=== PATIENT | male | born 1990 | race Caucasian/White ===

== ENCOUNTER 2017-03-21 00:07 | Emergency (ER) | payer MEDICAID ==
[2017-03-21] MEDS ORDERED: Ketorolac 60 MG/2 ML SDV IM ONE (00:40)
--- NOTE | 2017-03-21 00:46 | EDM.PDOC ---
ED HPI GENERAL MEDICAL PROBLEM - General Chief Complaint: General Stated Complaint: TOOTHE ACHE Time Seen by Provider: 03/21/17 00:31 Source of Information: Reports: Patient, RN History Limitations: Reports: No Limitations - History of Present Illness INITIAL COMMENTS - FREE TEXT/NARRATIVE: 27 yr male presents with tooth pain. States he is here fishing and staying at [facility]. States he has had these wisdom teeth for quite some time and he has taken Ibuprofen or Tylenol for the pain and it has been improved. States no signs of abscess and no drainage. States he hasn't tried ice to this area. States he did try some alcohol earlier and this didn't help. States he was advised to have the wisdom teeth removed and hasn't done this yet. States he does have dental insurance and will need to schedule this. 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: Acetaminophen, Other Medication(s) Other Treatments RO[employer] MACHINE [employer]NER: Ibuprophen Left Lower Tooth/Teeth Pain Score (Numeric/FACES): 8 - Related Data Allergies Allergy/AdvReac Type Severity Reaction Status Date / Time No Known Allergies Allergy Verified 03/21/17 00:21 Home Meds: Home Meds NK [No Known Home Meds] 03/21/17 [History] Past Medical History Musculoskeletal History: Reports: Fracture - Past Surgical History GI Surgical History: Reports: Appendectomy Musculoskeletal Surgical History: Reports: Other (See Below) Other Musculoskeletal Surgeries/Procedures:: Boxer fx to R hand x2, R wrist Fx. Hx L floating rib fx ED ROS GENERAL - Review of Systems Review Of Systems: See Below Constitutional: Reports: No Symptoms HEENT: Reports: Dental Pain Respiratory: Reports: No Symptoms Cardiovascular: Reports: No Symptoms GI/Abdominal: Reports: No Symptoms ED EXAM, GENERAL - Physical Exam Exam: See Below Exam Limited By: No Limitations General Appearance: Alert, No Apparent Distress Ears: Hearing Grossly Normal Nose: Normal Inspection Throat/Mouth: Normal Lips, No Airway Compromise, Other (bottom left gum has dark tooth noted to wisdom tooth area.) Head: Atraumatic, Normocephalic Neck: Supple, Non-Tender, Full Range of Motion Respiratory/Chest: No Respiratory Distress, Lungs Clear, Normal Breath Sounds Cardiovascular: Regular Rate, Rhythm Neurological: Alert, Oriented, Normal Cognition, Normal Gait Psychiatric: Normal Affect, Normal Mood Skin Exam: Warm, Dry, Normal Color Lymphatic: No Adenopathy Course - Vital Signs Last Recorded V/S: Last Vital Signs Temp 98.5 F 03/21/17 00:25 Pulse 81 03/21/17 00:25 Resp 20 03/21/17 00:25 BP 184/121 H 03/21/17 00:25 Pulse Ox 96 03/21/17 00:25 - Orders/Labs/Meds Meds: Medications Discontinued Medications Generic Name Dose Route Start Last Admin Trade Name Ash[place] PRN Reason Stop Dose Admin Ketorolac Tromethamine 60 mg 03/21/17 00:40 Toradol IM 03/21/17 00:41 ONETIME ONE - Re-Assessments/Exams Free Text/Narrative Re-Assessment/Exam: 03/21/17 00:47 toradol 60 mg IM now, Recommend getting Orajel at [address], if available. Ice or heat to jaw to assist with pain. No more NSAID for 8 hr, may use Tylenol for pain with this. Recommend return to dentist for wisdom teeth extraction. Review of BP and recheck completed. Pt states his normal is 180/120 and states no one told him this was high. BP recheck has improved. Recommend F/U with PCP for hypertension. Departure - Departure Time of Disposition: 00:54 Disposition: Home, Self-Care 01 Condition: Good Clinical Impression: Toothache - Discharge Information Instructions: [facility] Referrals: PCP,None [Primary Care Provider] - Forms: ED Department Discharge Additional Instructions: Follow up with primary MD for BP and Primary Dentist for tooth carries.
== END 2017-03-21 00:56 | disposition home or self-care (01) ==
LOC: LB.ED 00:07
DX: K08.89 Other specified disorders of teeth and supporting structures (principal)
CPT/HCPCS: 96372; 99282-25